=== PATIENT | female | born 1960 | race Caucasian/White ===

== ENCOUNTER 2025-06-19 12:37 | Emergency (ER) | payer BC ==
[2025-06-19] MEDS ORDERED: Sodium Chloride 0.9% 10 ML Syringe FLUSH PRN (13:45)
[2025-06-19 13:56] LABS: BASOPHILS ABSOLUTE AUTO 0.0 K/mm3 (0.0-0.2); BASOPHILS PERCENT AUTO 0.4 % (0.0-1.0); EOSINOPHILS ABSOLUTE AUTO 0.1 K/mm3 (0.0-0.4); EOSINOPHILS PERCENT AUTO 2.0 % (0.0-6.0); IMMATURE GRAN ABSOLUTE AUTO 0.03 K/mm3 (0.00-0.05); IMMATURE GRAN PERCENT AUTO 0.4 % (0.0-0.4); LYMPHOCYTES ABSOLUTE AUTO 1.9 K/mm3 (1.0-4.8); LYMPHOCYTES PERCENT AUTO 27.8 % (24.0-44.0); MEAN PLATELET VOLUME 10.2 fl (9.4-12.3); MONOCYTES ABSOLUTE AUTO 0.5 K/mm3 (0.0-0.8); MONOCYTES PERCENT AUTO 6.7 % (0.0-8.0); NEUTROPHILS ABSOLUTE AUTO 4.3 K/mm3 (1.8-7.7); NEUTROPHILS PERCENT AUTO 62.7 % (41.0-71.0); NRBC ABSOLUTE 0.00 (0.00-0.02); NRBC PERCENT 0.0 % (0.0-0.2); PLATELET COUNT,PLT 345 K/mm3 (150-400); RED BLOOD CELL COUNT 4.23 M/mm3 (4.10-5.30); WHITE BLOOD CELL COUNT,WBC 6.86 K/mm3 (3.9-11.3)
[2025-06-19 14:09] LABS: ESTIMATED GFR 72.0 mL/min (>60); GLUCOSE RANDOM 99.0 mg/dL (70-99)
[2025-06-19 14:26] LABS: A/G RATIO 1.1 (1-2); ALANINE AMINOTRANSFERASE,ALT 28.0 U/L (14-59); ASPARTATE AMNIOTRANSFERASE,AST 19.0 U/L (15-37); BILIRUBIN TOTAL 0.3 mg/dL (0.2-1.0); BLOOD UREA NITROGEN,BUN 9.0 mg/dL (7-18); CARBON DIOXIDE,CO2 28.0 mEq/L (21-32); CHLORIDE,CL 104.0 mEq/L (98-107); CREATININE 0.9 mg/dL (0.55-1.02); EST CRCL DRUG DOSING (CG) 45.96 mL/min; POTASSIUM,K 3.7 mEq/L (3.5-5.1); PROTEIN TOTAL,TP 7.5 g/dl (6.4-8.2); SODIUM,NA 141.0 mEq/L (136-145)
[2025-06-19 14:29] LABS: TROPONIN I HIGH SENSITIVITY 166.0 pg/mL (<=51)
[2025-06-19] MEDS: Heparin Sodium/D5W 250 ML IV SCH (15:08)
[2025-06-19] MEDS: Heparin Sodium 5,000 Units/ML Vial IVPUSH ONE (15:08)
== END 2025-06-19 16:08 ==
LOC: JD.ED 12:37 → EDSEX 12:37 → JD.ED 16:08
DX: I21.4 Non-ST elevation (NSTEMI) myocardial infarction (principal); I10 Essential (primary) hypertension; E03.9 Hypothyroidism, unspecified; Z79.890 Hormone replacement therapy; Z79.899 Other long term (current) drug therapy
CPT/HCPCS: 36415; 71045; 80053; 84484; 85025; 85730; 93005; 96365; 99285; A9270; J1644; 93010